=== PATIENT | male | born 2000 | race Asian ===

== ENCOUNTER 2022-07-28 16:07 | Emergency (ER) | payer OTHER, SELFPAY ==
[2022-07-28 16:09] VITALS: BP 138/78; PULSE 81; RESP 16; TEMP 36.6; O2SAT 99; BMI 27.9
--- NOTE | 2022-07-28 16:39 | CM.ED ---
SW Note Referral Source: [facility] Staff, Pina Negron Referral Reason: Mental Health Per [facility] staff they have received multiple care team reports (4 over the past several weeks) and emails from parents sharing concerns about students statements regarding suicide and . [facility] staff, Pina Negron reported the following: On interview with [facility] staff on 07/23/22 patient refers to himself as filth and I hate myself and something he will forget to eat, procrastinate his work, not sleep all of which add to making myself miserable. Patient reported active suicidal ideation with multiple methods including jumping off multiple story building, using a knife, rope anything could be used but then for each method stated various reason why he thought it may not work (i.e there isn't a tall enough building here, I don't have rope, I don't have access to a sharp enough knife. Patient voiced that if he makes an attempt that it is lethal as he doesn't want to suffer physical pain after an uncompleted attempted. Patient voiced, multiple time, IF I wanted to do it, I would make it succeed and then would state I don't see a point in killing myself- I will eventually. Patient reported an intensity of ideation as strong and constant and I'm always trying to suppress them and sometimes the thoughts distract him from work, things he can concentrate on. Patient without prompting showed [facility] staff a picture of a photo he keeps posted in his room and I look at it everyday. Patient voiced the picture was of himself although the person is unrecognizable as the eyes are blacked out, the lips have cartoon like/joker smile across them and the neck has a cut across it, the background of the picture has the words across it multiple times and the head of the person has a red stream entering the left side and a spray of red ink (blood) coming out the other, when asked about the picture the student reported the neck has a slit across it or could be a rope that that the skin is flayed and the red pen symbolized a gunshot/bullet through the skull. Patient voiced to [facility] staff that he has told his parents they should have aborted me and I'm a burden to myself and it causes others to be effected and that he is angry with self and frustrated he isn't able to get work done and just deal with these thoughts. Patient stated professors are not helpful and said I would slip my wrist in front of them to see their response. On 07/26/22 patient reports that he was having the worse week every. Patient reported I would slit my neck in front of them and smile to see what their reaction would be regarding facility members. Patient said that when asked what he wanted them to feel he stated I want them to suffer like I'm suffer. Patient stated if he a plan that would work (lethal) he would at on it if I decided to do it nothing could stop me. Patient shared anger regarding his parents. Patient stated he spoke to his mom over the weekend and said that the next time you see me I will be in a coffin. You can take my body home and burn it. Patient then shared intense hatred for his father and that he had thoughts of killing his father cutting off his arms and legs until he is just a torso, putting it in a barrel and putting diesel on him and setting him on fire. When asked if he wanted to kill his father patient said no.. I know the difference between right and wrong. I wouldn't do it. But I want him to suffer like I have suffered. SW met with patient in the ED at [facility], after he was brought to the ED by Zank. SW asked why patient is here and patient said they sent me.. they kept Zank there so I didn't have a choice. Patient said they maybe think I a am suicidal but I will not do anything that drastic. Patient was asked if he wants to and he said eventually. Patient was asked if he wants to make himself sooner and patient responded it's too much work. SW asked what would happen if he and patient said I don't know.. it will be over. SW asked patient if wants help and he said I wouldn't't have gone to wellness.. but there is not anything right now because I am fine now. SW asked what would help him and patient said that he is fine. Patient is single Identified Gender: Male Sexual Orientation: Heterosexual Currently not in a relationship Living Situation: [facility] the [facility]. No roommate. From [facility] Support or Resources: usually it is just me because I don't want to bother other people.. i manage it. Patient then referenced friends and his parents but stated they are there but not here. History: None Education and Employment History: Patient graduated high school in [place]. Patient is a [employer] at the [employer] majoring in Tripnary science. Patient said that his GPA is pretty good 3.953. Mental Health Treatment: Patient reports no previous mental health treatment or psych hospitalization. Patient said I was never diagnosed with anything. Patient said that this is the first time he has had counseling, at [facility] and that started in June when there were 4 care reported and the susannah told me to go to counseling. Triggers and Stressors: I can't be productive and get focussed and then it develops into that... (referencing stressors). Patient said that sometimes it happens and I don't know it. Patient said that lack of sleep is also a stressors. Coping Skills: Video games, piano, working out, taking pictures Abuse Issues: Denied Substance Abuse:Denied Risk to Others and Self Suicidal: Patient said that he has thoughts. SW asked about the suicidal thoughts an patient said hypothetically if I was to do it.. what is the most efficient way.. something that would surely get you killed. Patient said that the methods are knife to artery but if you cut the wrong artery it could affect his hand and hanging but it has to be the right amount off the ground or else it is strangulation. SW commented that it appears patient has researched methods and patient denied researching methods but stated in regards to hanging you need a certain amount of force to sever the spinal cord. Patient said that people hear about it after it happened. Patient denied suicide attempt. Homicidal Ideation : Patient denied. However, patient has voiced plan to cut his fathers arms and legs off until it is a torso and putting him in a barrel and putting diesel on him and setting him on fire to the [facility] staff. Violence: Patient said that he has cut himself with the clip on the pen recently. Patient reports cutting himself since high school. Patient reports that the cutting has increased but it is not like regular .. only but but not insanely bad. Patient denied violence to others. Patient reports that he had knocked glass with his fist and broken glass and punched a water filter and broke it. MSE Orientation x4 Memory: Good Appearance: Clean, Appropriate Mood and Affect: Depressed Mood and Flat Affect. Cooperative Communication Pattern: Responds to Questions Thought Process: Denied AH/VH and stated I am not a schizophrenic when asked about AH/VH. General Intellectual Functioning: Above Average Judgement: Impaired Insight: Impaired SW consulted with MD Salazar. Due to patient's statements at the ED and to the [facility] staff patient requires inpatient psych hospitalization for crisis stabilization and med management. Plan: Inpatient psych Kimi DAMICO
--- NOTE | 2022-07-28 16:43 | EX.ED.VIS.PS ---
HPI HPI - Psych History of Present Illness Chief Complaint: Suicidal Informant: patient Narrative Narrative: Patient presents after some suicidal and even homicidal thoughts. 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 He has not had any issues. Evidently a few other students have recently reported him as being concern for depression or other issues. Because of this he had a counselor evaluation today. He did make comments about possibilities of hurting himself. He also had statements about wanting his parents to suffer like he has suffered. He had some very specific statements that I reviewed. I did look at the outpatient notes that were taken by the counselor today. I also discussed the case directly with our psychosocial rehabilitation counselor, Kimi, who evaluated this patient. This patient denies any known history of depression or anxiety. He denies any formal counseling or medications in the past. He takes no medications other than occasional supplements with exercise. But these are all [id number] supplements and nothing from mail-order. He has no physical or medical type complaints. [facility] Home Medications NK 07/28/22 [History Last Taken Unknown] Allergy/AdvReac Type Severity Reaction Status Date / Time No Known Allergies Allergy Verified 07/28/22 16:11 Social History Smoking Status: Never smoker ROS ROS ED Constitutional Constitutional ED: Denies chills or fever(s) Eyes Eyes: Denies change in vision ENT ENT ED: Denies rhinorrhea or sore throat Cardiovascular Cardiovascular: Denies chest pain or palpitations Respiratory/Chest Respiratory/Chest: Denies cough or dyspnea Gastrointestinal Gastrointestinal: Denies diarrhea, nausea or vomiting Genitourinary Genitourinary ED: Denies dysuria Musculoskeletal Musculoskeletal: Denies myalgias Integumentary Denies rash Neurologic Neurologic: Denies headache(s) Psychiatric Psychiatric: Reports suicidal thoughts Hematologic/Lymphatic Hematologic/Lymphatic: Denies lymphadenopathy Allergic/Immunologic Allergic/Immunologic ED: Denies urticaria EXAM Physical Exam Narrative Exam Narrative: Patient is awake alert no acute distress. He speaks perfect [place]er. HEENT: Mucous membranes are moist. No sign of trauma. Eyes show no icterus Neck shows no JVD or pain with motion Lungs are clear bilaterally and oxygen saturation is normal at 99% on room air. Heart is regular without murmur gallop or rub. Peripheral pulses are normal. Abdomen is thin soft and completely nontender shows no CVA or suprapubic tenderness Extremities show no sign of trauma or swelling or tenderness Neurologically is awake alert and appropriate. Psychiatry. Patient is awake alert. He has some thoughts of self injuring but does not feel like he has the energy to do that. But he has researched how high it would take to hang himself, how to cut his arteries so he would bleed the most, he has had thoughts of cutting his neck in front of his parents. These are all highly concerning. Const Vital Signs: 07/28/22 16:09 Temperature 97.9 F Temperature Source Temporal Pulse Rate 81 Respiratory Rate 16 Blood Pressure 138/78 H Blood Pressure Mean 98 Pulse Ox 99 Oxygen Delivery Method Room Air Positive well nourished and well developed General Appearance ED: well developed MDM MDM MDM Narrative Medical decision making narrative: I reviewed the patient's blood work. CBC showed no acute process. Electrolytes show minimally low sodium that will self-correct. Alcohol is negative. His toxicology screen was negative. Vichy cleared for psychiatric evaluation and admission if needed. Lab Data Attestation: I reviewed the patient's lab results. Labs: Laboratory Results - last 24 hr 07/28/22 07/28/22 07/28/22 16:50 16:50 16:50 WBC 5.7 RBC 5.32 Hgb 16.2 Hct 48.2 MCV 90.6 MCH 30.5 MCHC 33.6 RDW Std Deviation 40.1 RDW Coeff of [place] 12.2 Plt Count 227 MPV 11.1 Immature Gran % (Auto) 0.400 Neut % (Auto) 53.8 Lymph % (Auto) 38.8 [place] % (Auto) 4.7 Eos % (Auto) 1.8 Baso % (Auto) 0.5 Absolute Neuts (auto) 3.1 Absolute Lymphs (auto) 2.21 Nucleated RBC % 0 Sodium 133 L Potassium 5.1 Chloride 103 Carbon Dioxide 21.0 Anion Gap 9 BUN 19 H Creatinine 1.05 Estim Creat Clear Calc 96.81 Est GFR (MDRD) Af Amer 115 Est GFR (MDRD) Non-Af 95 BUN/Creatinine Ratio 18.1 Glucose 109 H Calcium 8.9 Urine Opiates Screen Urine Methadone Screen Ur Barbiturates Screen Ur Phencyclidine Scrn Ur Amphetamines Screen MDMA (Ecstasy) Screen U Benzodiazepines Scrn Urine Cocaine Screen U Cannabinoids Screen Ur Drug Screen Comment Ethyl Alcohol 4.0 07/28/22 17:10 WBC RBC Hgb Hct MCV MCH MCHC RDW Std Deviation RDW Coeff of Francisco Plt Count MPV Immature Gran % (Auto) Neut % (Auto) Lymph % (Auto) [place] % (Auto) Eos % (Auto) Baso % (Auto) Absolute Neuts (auto) Absolute Lymphs (auto) Nucleated RBC % Sodium Potassium Chloride Carbon Dioxide Anion Gap BUN Creatinine Estim Creat Clear Calc Est GFR (MDRD) Af Amer Est GFR (MDRD) Non-Af BUN/Creatinine Ratio Glucose Calcium Urine Opiates Screen NEGATIVE Urine Methadone Screen NEGATIVE Ur Barbiturates Screen NEGATIVE Ur Phencyclidine Scrn NEGATIVE Ur Amphetamines Screen NEGATIVE MDMA (Ecstasy) Screen NEGATIVE U Benzodiazepines Scrn NEGATIVE Urine Cocaine Screen NEGATIVE U Cannabinoids Screen NEGATIVE Ur Drug Screen Comment Ethyl Alcohol Discharge Plan Triage Chief Complaint: Suicidal ED Provider: Juan Manuel Salazar Dx/Rx/DC Orders Clinical Impression: Suicide ideation Prescriptions: No Action NK Primary Care Provider: Shine Peralta Referrals: [facility] Doctor,Out of [Non-Staff] - Disposition Disposition: Psychiatric Hospital or Unit
[2022-07-28 17:02] LABS: Absolute Lymphocyte Count 2.21 X10^3/uL (0.83-4.51); Absolute Neutrophil Count 3.1 X10^3/uL (2.0-7.7); Basophil# 0.03 X10^3/uL; Basophil% 0.5 % (0-1); Eosinophils% 1.8 % (0-5); Hematocrit 48.2 % (40-54); Hemoglobin 16.2 g/dL (13.0-16.5); Lymphocyte # 2.21 X10^3/ul (0.83-4.51); Lymphocyte % 38.8 % (19-41); Mean Corp Hgb Conc 33.6 g/dL (32-36); Mean Corpuscular Hgb 30.5 pg (27.0-32.0); Mean Corpuscular Volume 90.6 fL (80-94); Mean Platelet Vol. 11.1 fl (6.2-12.0); Monocyte# 0.27 X10^3/uL; Monocyte% 4.7 % (0-10); NRBC Flagged by Analyzer 0 % (0-5); Neutrophil # 3.06 X10^3/uL (2.7-7.7); Neutrophil % 53.8 % (47-70); Platelet Count 227 K/mm3 (150-450); RBC Distribution Width CV 12.2 % (11.6-14.6); RBC Distribution Width SD 40.1 fl (35.1-43.9); Red Blood Count 5.32 M/mm3 (4.6-6.2); White Blood Count 5.7 K/mm3 (4.4-11.0)
[2022-07-28 17:28] LABS: Anion Gap 9 (5-15); BUN 19 mg/dL (7-18); BUN/Creat Ratio 18.1 RATIO (10-20); Calcium,Total 8.9 mg/dL (8.5-10.1); Chloride 103 mmol/L (98-107); Creatinine, Serum 1.05 mg/dL (0.70-1.30); EST Glomerular Filtration Rate 95 mL/min (>60); Est Glom Filt Rate - Afr Amer 115 mL/min (>60); Estimated Creatinine Clearance 96.81 ml/min; Glucose 109 mg/dL (74-106); Potassium 5.1 mmol/L (3.5-5.1); Sodium Level 133 mmol/L (136-145)
[2022-07-28 17:45] LABS: Amphetamine Urine VISTA NEGATIVE (<1000 ng/mL); Barbiturate Urine VISTA NEGATIVE (< 200 ng/mL); Benzodiazepine Urine VISTA NEGATIVE (< 200 ng/mL); Cocaine Urine VISTA NEGATIVE (< 300 ng/mL); Ecstacy Urine VISTA NEGATIVE (< 500 ng/mL); Methadone Urine VISTA NEGATIVE (< 300 ng/mL); PCP Urine VISTA NEGATIVE (< 25 ng/mL); THC Urine VISTA NEGATIVE (< 50 ng/mL); Vista UDS pH Range 7
--- NOTE | 2022-07-28 19:41 | CM.ED ---
Qasim from [facility] called. Patient has no mental health coverage. Kimi DAMICO
[2022-07-28 20:19] VITALS: RESP 16
--- NOTE | 2022-07-28 20:23 | CM.ED ---
ZAID called Arnav at [facility]. He is unsure if they have a male bed. Arnav was advised to call crisis after 10:30pm. ZAID received call from [facility]. They need UA and EKG. UA and EKG ordered. Kimi DAMICO
[2022-07-28 21:27] LABS: Bacteria 0 SEEN /hpf (None Seen); Color, Urine Yellow (Yellow); Glucose, Dipstick Normal (Normal); Ketone-Dipstick Negative (Negative); Leukocyte Esterase-Dipstick Negative /ul (Negative); Mucous, Urine 0 SEEN /hpf (<or=2+); Nitrite-Dipstick Negative (Negative); Occult Blood-Urine Negative /ul (Negative); Protein-Dipstick Negative (Negative); Red Blood Cells-Urine 0 SEEN /hpf (0-5); Squamous Epithelial Cells - UA 0 SEEN /hpf (0-5); Urine Bilirubin Dipstick Negative (Negative); Urine Clarity Clear (Clear); Urine Urobilinogen Normal (Normal); White Blood Cells 0 SEEN /hpf (0-5)
--- NOTE | 2022-07-28 21:39 | CM.ED ---
ZAID faxed pink slip to Patricia [facility]. ZAID called Arnav at [facility] Arnav reports patient is accepted by [facility] and going to [address]. RN to RN is . ZAID updated , RN and qa tester. Patient updated Kimi DAMICO
--- NOTE | 2022-07-28 21:44 | CM.ED ---
ZAID went into patient's room to speak to update him that he was accepted at [facility] however, patient was asleep. SW did not wake him up as the clinic charge nurse will update him when he wakes up. ZAID called [facility] and cancelled the referral. ZAID called [employer] for [facility] and advised patient was accepted at [facility]. Plan: [facility] Kimi DAMICO
[2022-07-29 00:42] VITALS: BP 114/77; PULSE 62; RESP 18; TEMP 36.3; O2SAT 100
--- NOTE | 2022-07-29 01:12 | NURSING ---
CALLED PHYSICIANS FOR AN UPDATED ETA IT IS NOW [phone]
--- NOTE | 2022-07-29 01:55 | ED.RN ---
Report given to Gabrielle RENDON at [facility]
[2022-07-29 03:22] VITALS: BP 113/69; PULSE 55; RESP 17; O2SAT 100
== END 2022-07-29 04:29 ==
PROVIDERS: Emergency Provider Emergency Medicine; PCP Pediatrics; Visit Provider Emergency Medicine
DX: R45.851 Suicidal ideations (principal); R45.850 Homicidal ideations; Z20.822 Contact with and (suspected) exposure to COVID-19
CPT/HCPCS: 80048; 80307; 81001; 82077; 85025; 87811; 93005; 99284